=== PATIENT | male | born 1965 | race African-American/Black ===

== ENCOUNTER 2018-10-23 12:54 | Inpatient (IN) | payer OTHER ==
[2018-11-11] MEDS ORDERED: OXYCODONE HCL SR 10 MG TABLET PO PRN (05:00)
[2018-11-11] MEDS ORDERED: LACTATED RINGERS 1000 ML IV PRN (05:00)
[2018-11-11] MEDS ORDERED: IBUPROFEN 800 MG in NORMAL SALINE 250 ML IV PRN (05:00)
[2018-11-11] MEDS ORDERED: PANTOPRAZOLE SODIUM 20 MG TABLET.DR PO PRN (05:00)
[2018-11-11] MEDS ORDERED: LIDOCAINE 0.5% INJ-PF (5 MG/ML) 50 ML SDV SUBCUT PRN (05:00)
[2018-11-11] MEDS ORDERED: BUPIVACAINE INJ/PF LIPOSOME/PF 266 MG/20 ML SDV INJ PRN (05:00)
[2018-11-11] MEDS ORDERED: CEFAZOLIN INJ 1 GM VIAL IV PRN (05:00)
[2018-11-11] MEDS ORDERED: VANCOMYCIN HCL 1,000 MG in DEXTROSE 5%-WATER 250 ML IV PRN (05:00)
[2018-11-11] MEDS ORDERED: CEFAZOLIN 1 GM/D5W RTU 1 GM/50 ML RTUPB IV ONE (05:53)
[2018-11-11] MEDS ORDERED: PANTOPRAZOLE SODIUM 20 MG TABLET.DR PO ONE (05:57)
[2018-11-11] MEDS ORDERED: ONDANSETRON HCL INJ/PF 4 MG/2 ML SDV ONE (06:27)
[2018-11-11] MEDS ORDERED: MIDAZOLAM 2 MG/2 ML INJ ONE (06:27)
[2018-11-11] MEDS ORDERED: FENTANYL CITRATE INJ/PF 100 MCG/2 ML AMPUL ONE (06:27)
[2018-11-11] MEDS ORDERED: DEXAMETHASONE SOD PHOSPHATE INJ 4 MG/1 ML VIAL ONE (06:27)
[2018-11-11] MEDS ORDERED: PROPOFOL INJ 200 MG/20 ML VIAL IV ONE (06:28)
[2018-11-11] MEDS ORDERED: LIDOCAINE 0.5% INJ-PF (5 MG/ML) 50 ML SDV ONE (06:32)
[2018-11-11] MEDS ORDERED: TRANEXAMIC ACID INJ/PF 1,000 MG/10 ML SDV ONE ×2 (07:01→09:53)
[2018-11-11] MEDS ORDERED: BUPIVACAINE HCL 0.5 % INJ/PF 30 ML SDV ONE (07:04)
[2018-11-11] MEDS ORDERED: BUPIVACAINE HCL 0.5%-EPI 1:200000 INJ/PF 30 ML VIAL ONE (07:43)
[2018-11-11] MEDS ORDERED: FENTANYL CITRATE INJ/PF 100 MCG/2 ML AMPUL IV PRN ×3 (07:59)
[2018-11-11] MEDS ORDERED: ONDANSETRON HCL INJ/PF 4 MG/2 ML SDV IV PRN ×2 (07:59→08:30)
[2018-11-11] MEDS ORDERED: MEPERIDINE HCL/PF INJ 25 MG/1 ML DISP.SYRIN IV PRN (07:59)
[2018-11-11] MEDS ORDERED: PROMETHAZINE HCL INJ 25 MG/1 ML VIAL IV PRN ×2 (07:59)
[2018-11-11] MEDS ORDERED: MORPHINE SULFATE 10 MG/ML INJ IV PRN (07:59)
[2018-11-11] MEDS ORDERED: DIPHENHYDRAMINE HCL 50 MG/ML VIAL IV PRN ×2 (07:59→08:30)
[2018-11-11] MEDS ORDERED: MAG HYDROX/AL HYDROX/SIMETH SUSP 30 ML UDCUP PO PRN (08:30)
[2018-11-11] MEDS ORDERED: OXYCODONE HCL IR 5 MG TABLET PO PRN (08:30)
[2018-11-11] MEDS ORDERED: RINGERS SOLUTION,LACTATED 1,000 ML IV PRN (08:30)
[2018-11-11] MEDS ORDERED: ONDANSETRON 4 MG TAB.RAPDIS PO PRN (08:30)
[2018-11-11] MEDS ORDERED: ACETAMINOPHEN 325 MG TABLET PO PRN (08:30)
[2018-11-11] MEDS ORDERED: ZOLPIDEM TARTRATE 5 MG TABLET PO PRN (08:30)
--- NOTE | 2018-11-11 08:36 | Operative Report ---
Operative Report DATE OF SURGERY: 11/11/18 PREOPERATIVE DIAGNOSIS: Left knee arthritis OPERATION: Left knee arthroplasty SURGEON: PAUL YU ANESTHESIA: GA TISSUE REMOVED OR ALTERED: Bone to pathology ESTIMATED BLOOD LOSS: 50 PROCEDURE: Implants used: Femur: [place] triathlon size 6 CR uncemented femur Tibia: 6 uncemented tibia Tibial liner: 9 mm CS insert Patella: 38 mm uncemented patella Note on implant sizing. The patient had an exaggerated wide compared to anterior posterior dimension to both the femur the tibia. Femoral sizing was a 6 on the basis of anterior posterior dimensions and this left a fair amount of medial lateral condyle uncovered. Likewise when fitting the tibia while a 7 what if it medial to lateral it was too big and anterior posterior dimension hence a size 6 was opted for. Procedure with the patient supine on the operating table the left the limb is prepped and draped in a sterile fashion. The limb was elevated for exsanguinati on and the tourniquet inflated to 280 torr. A standard midline median parapatellar approach the knee is taken. Access is gained to the femoral canal through the intercondylar notch. Intramedullary alignment instrumentation used to resect 10 mm of distal femur in 5 of valgus. Sizing guide indicated a size 6 femur. Appropriate cutting jig is then used to fashion anterior posterior and chamfer cuts. A trial reduction femurs performed and this is judged to be adequate. Attention was next turned to the tibia. Using an extra medullary alignment system 9 millimeters was resected off the lateral tibial plateau. This is sized to a size 6 tibia. A trial reduction was now performed with a 6 femur and a 6 tibia using a 9 millimeters spacer. It is full extension and central patellofemoral tracking. The articular surface the patella was next resected using an oscillating saw. All trial implants were removed. Above implants are impacted into position. the tourniquet was deflated hemostasis obtained the wound is then closed in layers using interrupted Vicryl followed by torie. A sterile compressive dressing was applied and the patient returned to recovery room in satisfactory c ondition.
[2018-11-11] MEDS: FENTANYL CITRATE INJ/PF 100 MCG/2 ML AMPUL ONE ×2 (09:05→09:20)
--- NOTE | 2018-11-11 09:54 | RADIOLOGY REPORT (SQ) ---
EXAM DESCRIPTION: KNEE LEFT 2 VIEWS COMPLETED DATE/TIME: 11/11/2018 9:25 am REASON FOR STUDY: Post OP -Long Cassette in PACU M17.12 UNILATERAL PRIMARY OSTEOARTHRITIS, LEFT KNE E M17.0 BILATERAL PRIMARY OSTEOARTHRITIS OF KNEE COMPARISON: None. NUMBER OF VIEWS: Two views. TECHNIQUE: AP and lateral radiographic images acquired of the left knee. LIMITATIONS: None. FINDINGS: Postoperative findings of left knee total arthroplasty with expected overlying postoperati ve changes. No evidence of perihardware fracture or component malpositioning. IMPRESSION: Postoperative findings of left knee total arthroplasty with expected overlying postopera tive changes. No evidence of perihardware fracture or component malpositioning. TECHNICAL DOCUMENTATION: JOB ID: [id number] [email or web address]- All Rights Reserved Reading location - IP/workstation name: [email or web address]
[2018-11-11] MEDS ORDERED: TRANEXAMIC ACID INJ/PF 1,000 MG/10 ML SDV IV ONE (10:00)
[2018-11-11] MEDS ORDERED: ASPIRIN 81 MG TABLET, CHEWABLE PO SCH (10:00)
[2018-11-11] MEDS: OXYCODONE HCL SR 10 MG TABLET PO SCH ×2 (10:23→22:25)
[2018-11-11] MEDS: ASPIRIN 81 MG TABLET, ENT COATED PO SCH (10:24)
[2018-11-11] MEDS: IBUPROFEN 800 MG in NORMAL SALINE 250 ML IV SCH ×2 (14:39→22:23)
[2018-11-11] MEDS ORDERED: SUCCINYLCHOLINE CHLORIDE INJ 200 MG/10 ML VIAL ONE (15:43)
[2018-11-11] MEDS: SENNOSIDES/DOCUSATE 8.6-50 MG 1 EACH TABLET PO SCH (17:04)
[2018-11-11] MEDS ORDERED: VANCOMYCIN HCL 1,000 MG in DEXTROSE 5%-WATER 250 ML IV ONE (20:30)
[2018-11-12] MEDS: IBUPROFEN 800 MG in NORMAL SALINE 250 ML IV SCH ×2 (05:42→13:33)
[2018-11-12] MEDS ORDERED: PANTOPRAZOLE SODIUM 40 MG TABLET.DR PO SCH ×2 (06:00)
[2018-11-12 06:16] LABS: HEMATOCRIT 33.2 % (37.9-51.0); HEMOGLOBIN 11.1 g/dL (13.5-17.0); MEAN CORPUSCULAR HEMOGLOBIN 26.5 pg (27.0-33.4); MEAN CORPUSCULAR HGB CONC 33.3 g/dL (32.0-36.0); MEAN CORPUSCULAR VOLUME 79 fl (80-97); PLATELET COUNT 208 10^3/uL (150-450); RED BLOOD COUNT 4.18 10^6/uL (4.35-5.55); RED CELL DISTRIBUTION WIDTH 14.7 % (11.5-14.0); WHITE BLOOD COUNT 7.7 10^3/uL (4.0-10.5)
[2018-11-12 06:36] LABS: ANION GAP 6 (5-19); BLOOD UREA NITROGEN 13 mg/dL (7-20); CALCIUM 8.7 mg/dL (8.4-10.2); CARBON DIOXIDE 28 mmol/L (22-30); CHLORIDE 102 mmol/L (98-107); GLUCOSE 97 mg/dL (75-110); POTASSIUM 4.3 mmol/L (3.6-5.0)
--- NOTE | 2018-11-12 07:14 | PDOC DISCHARGE SUMMARY ---
Impression - Admit/DC Date/PCP Admission Date/Primary Care Provider: 11/11/18 05:35 VARGAS CASTRO Discharge Date: 11/12/18 - Additional Information Resuscitation Status: Full Code Discharge Diet: Regular Discharge Activity: Balance Activity w/Rest, No tub bath Referrals: PAUL YU MD [ACTIVE STAFF] - 11/26/18 10:15 am Home Medications: Meloxicam [Mobic 15 mg Tablet] 15 mg PO ASDIR PRN 06/03/12 History of Present Illiness History of Present Illness: ROSITA ANN is a 53 year old male Patient is a 53-year-old black male with progressive left knee pain and functional disability second osteoarthritis. Patient is admitted for elective left knee arthroplasty. Hospital Course Hospital Course: Patient's admitted through the operating room where he undergoes an unconjugated left knee arthroplasty. He is returned to floor in satisfactory condition. He makes excellent progress with physical therapy ambulating on the day of surgery. He does so without any narcotic medication and his discretion. Compression dressing is removed on the first postoperative morning. Underlying OpSite dressings clean dry and intact with minimal pedal edema. Physical Exam Vital Signs: Temp Pulse Resp BP Pulse Ox 36.9 C 96 18 146/80 H 97 11/11/18 20:45 11/11/18 20:45 11/11/18 20:45 11/11/18 20:45 11/11/18 20:45 Intake & Output 11/11/18 11/12/18 11/13/18 06:59 06:59 06:59 Intake Total 2590 Output Total 75 Balance 2515 Weight 90.72 kg 100.6 kg General appearance: PRESENT: no acute distress Head exam: PRESENT: normocephalic Respiratory exam: PRESENT: unlabored Cardiovascular exam: PRESENT: RRR Pulses: PRESENT: +1 pedal pulses bilateral Vascular exam: PRESENT: normal capillary refill GI/Abdominal exam: PRESENT: soft Rectal exam: PRESENT: deferred Musculoskeletal exam: PRESENT: other - Left lower extremity OpSite dressing clean dry and intact. Distal neurovascular examination is intact. Neurological exam: PRESENT: alert, awake, oriented to person, oriented to place, oriented to time, oriented to situation, CN II-XII grossly intact. ABSENT: motor sensory deficit Psychiatric exam: PRESENT: appropriate affect, normal mood. ABSENT: homicidal ideation, suicidal ideation Skin exam: PRESENT: dry, intact, warm. ABSENT: cyanosis, rash Results Laboratory Results: WBC 7.7 10^3/uL (4.0-10.5) 11/12/18 05:08 RBC 4.18 10^6/uL (4.35-5.55) L 11/12/18 05:08 Hgb 11.1 g/dL (13.5-17.0) L 11/12/18 05:08 Hct 33.2 % (37.9-51.0) L 11/12/18 05:08 MCV 79 fl (80-97) L 11/12/18 05:08 MCH 26.5 pg (27.0-33.4) L 11/12/18 05:08 MCHC 33.3 g/dL (32.0-36.0) 11/12/18 05:08 RDW 14.7 % (11.5-14.0) H 11/12/18 05:08 Plt Count 208 10^3/uL (150-450) 11/12/18 05:08 Sodium 136.0 mmol/L (137-145) L 11/12/18 05:08 Potassium 4.3 mmol/L (3.6-5.0) 11/12/18 05:08 Chloride 102 mmol/L (98-107) 11/12/18 05:08 Carbon Dioxide 28 mmol/L (22-30) 11/12/18 05:08 Anion Gap 6 (5-19) 11/12/18 05:08 BUN 13 mg/dL (7-20) 11/12/18 05:08 Creatinine 1.01 mg/dL (0.52-1.25) 11/12/18 05:08 Est GFR ( Amer) > 60 (>60) 11/12/18 05:08 Est GFR (MDRD) Non-Af > 60 (>60) 11/12/18 05:08 Glucose 97 mg/dL (75-110) 11/12/18 05:08 Calcium 8.7 mg/dL (8.4-10.2) 11/12/18 05:08 Impressions: Knee X-Ray 11/11/18 08:32 IMPRESSION: Postoperative findings of left knee total arthroplasty with expected overlying postoperative changes. No evidence of perihardware fracture or component malpositioning. Plan Plan of Treatment: Patient be discharged home with home health services and DME. Follow-up with Dr. Yu and [facility] for surgery in 2 weeks for staple removal. Stroke Is this a Stroke Patient?: No Stroke Pt being discharged on Anti-thrombolytic therapy?: Yes Acute Heart Failure - Is this a Heart Failure Patient?: No
[2018-11-12] MEDS ORDERED: PRENATAL VITAMIN W DHA CAPSULE PO SCH (10:00)
[2018-11-12] MEDS: SENNOSIDES/DOCUSATE 8.6-50 MG 1 EACH TABLET PO SCH (12:00)
[2018-11-12] MEDS: OXYCODONE HCL SR 10 MG TABLET PO SCH (12:09)
[2018-11-12] MEDS: ASPIRIN 81 MG TABLET, ENT COATED PO SCH (12:11)
[2018-11-12] MEDS ORDERED: INFLUENZA QUAD (6MOS+) 2019-20 VAC 0.5 ML SYR IM ONE (16:00)
[2018-11-12 16:01] VITALS: BP 130/82
[2018-11-13] MEDS ORDERED: INFLUENZA QUAD (6MOS+) 2019-20 VAC 0.5 ML SYR IM ONE (08:00)
== END 2018-11-12 17:00 | disposition home health service (06) | DRG 470 ==
LOC: INOR 11-11 05:35 → 4S 11-11 10:08
PROVIDERS: ADMIT Orthopaedic Surgery; ATTEND Orthopaedic Surgery
PROC: 0SRD0JA Replacement of Left Knee Joint with Synthetic Substitute, Uncemented, Open Approach (ICD-10-PCS; principal; 2018-11-11 07:30)
PROC: 3E0234Z Introduction of Serum, Toxoid and Vaccine into Muscle, Percutaneous Approach (ICD-10-PCS; 2018-11-12)
DX: M17.12 Unilateral primary osteoarthritis, left knee (principal); Z23 Encounter for immunization
CPT/HCPCS: 01402; 36415; 80048; 85027; 88305; 88311; 88312; 90686; 94799; C1776; J0330; J0690; J1100; J1741; J2250; J2405; J2704; J3010; J3370; J3490; J7050; J7060

== ENCOUNTER → 2018-10-28 | Outpatient (CLI) | payer OTHER ==
[2018-10-28 14:17] LABS: ABSOLUTE LYMPHOCYTES (AUTO) 1.6 10^3/uL (0.5-4.7); ABSOLUTE MONOCYTES (AUTO) 0.4 10^3/uL (0.1-1.4); ABSOLUTE NEUT (AUTO) 1.8 10^3/uL (1.7-8.2); BASOPHILS % (AUTO) 0.2 % (0-2); HEMATOCRIT 38.2 % (37.9-51.0); HEMOGLOBIN 12.5 g/dL (13.5-17.0); LYMPHOCYTES % (AUTO) 41.2 % (13-45); MEAN CORPUSCULAR HEMOGLOBIN 26.1 pg (27.0-33.4); MEAN CORPUSCULAR HGB CONC 32.8 g/dL (32.0-36.0); MEAN CORPUSCULAR VOLUME 79 fl (80-97); MONOCYTES % (AUTO) 10.4 % (3-13); PLATELET COUNT 222 10^3/uL (150-450); RED BLOOD COUNT 4.81 10^6/uL (4.35-5.55); RED CELL DISTRIBUTION WIDTH 14.7 % (11.5-14.0); SEGMENTED NEUTROPHILS % (AUTO) 47.2 % (42-78); TOTAL CELLS COUNTED % (AUTO) 100 %; WHITE BLOOD COUNT 3.9 10^3/uL (4.0-10.5)
[2018-10-28 14:24] LABS: APPEARANCE,URINE CLEAR; BILIRUBIN,URINE NEGATIVE (NEGATIVE); COLOR,URINE COLORLESS; GLUCOSE, URINE NEGATIVE (NEGATIVE); KETONES,URINE NEGATIVE (NEGATIVE); URINE SPECIFIC GRAVITY 1.021
[2018-10-28 14:25] LABS: LEUKOCYTE ESTERASE,URINE NEGATIVE (NEGATIVE); NITRITE,URINE NEGATIVE (NEGATIVE); PROTEIN,URINE NEGATIVE (NEGATIVE); UROBILINOGEN,URINE NEGATIVE mg/dL (<2.0)
[2018-10-28 14:31] LABS: ANION GAP 10 (5-19); BLOOD UREA NITROGEN 16 mg/dL (7-20); CALCIUM 9.7 mg/dL (8.4-10.2); CARBON DIOXIDE 30 mmol/L (22-30); CHLORIDE 100 mmol/L (98-107); GLUCOSE 89 mg/dL (75-110); POTASSIUM 4.5 mmol/L (3.6-5.0)
--- NOTE | 2018-10-28 14:52 | RADIOLOGY REPORT (SQ) ---
EXAM DESCRIPTION: CHEST PA/LATERAL COMPLETED DATE/TIME: 10/28/2018 1:52 pm REASON FOR STUDY: PRE-OP COMPARISON: 06/03/2012 EXAM PARAMETERS: NUMBER OF VIEWS: two views TECHNIQUE: Digital Frontal and Lateral radiographic views of the chest acquired. RADIATION DOSE: NA LIMITATIONS: none FINDINGS: LUNGS AND PLEURA: No opacities, masses or pneumothorax. No pleural effusion. MEDIASTINUM AND HILAR STRUCTURES: No masses or contour abnormalities. HEART AND VASCULAR STRUCTURES: Heart normal size. No evidence for failure. BONES: No acute findings. HARDWARE: None in the chest. OTHER: No other significant finding. IMPRESSION: NO SIGNIFICANT RADIOGRAPHIC FINDING IN THE CHEST. TECHNICAL DOCUMENTATION: JOB ID: [id number] [employer]- All Rights Reserved Reading location - IP/workstation name: [email or web address]
--- NOTE | 2018-10-28 18:16 | EKG REPORT ---
SEVERITY:- ABNORMAL ECG - SINUS RHYTHM NONSPECIFIC T ABNORMALITIES, INFERIOR LEADS CONSIDER OLD ANTEROSEPTAL FL : Confirmed by: Everton Wakefield MD 28-Oct-2018 18:15:46
== END ==
LOC: OD 13:24
PROVIDERS: ATTEND Orthopaedic Surgery
DX: Z01.812 Encounter for preprocedural laboratory examination (principal); Z01.810 Encounter for preprocedural cardiovascular examination; Z01.811 Encounter for preprocedural respiratory examination; M17.12 Unilateral primary osteoarthritis, left knee
CPT/HCPCS: 36415; 71046; 80048; 81001; 85025; 93005; 93010

== ENCOUNTER → 2019-10-09 | Outpatient (CLI) | payer OTHER ==
[2019-10-09 11:29] LABS: ABSOLUTE LYMPHOCYTES (AUTO) 0.9 10^3/uL (0.5-4.7); ABSOLUTE MONOCYTES (AUTO) 0.4 10^3/uL (0.1-1.4); ABSOLUTE NEUT (AUTO) 4.7 10^3/uL (1.7-8.2); BASOPHILS % (AUTO) 0.1 % (0-2); EOSINOPHILS % (AUTO) 0.1 % (0-6); HEMATOCRIT 41.8 % (37.9-51.0); HEMOGLOBIN 13.8 g/dL (13.5-17.0); LYMPHOCYTES % (AUTO) 15.4 % (13-45); MEAN CORPUSCULAR HEMOGLOBIN 26.4 pg (27.0-33.4); MEAN CORPUSCULAR VOLUME 80 fl (80-97); MONOCYTES % (AUTO) 5.9 % (3-13); PLATELET COUNT 235 10^3/uL (150-450); RED BLOOD COUNT 5.24 10^6/uL (4.35-5.55); RED CELL DISTRIBUTION WIDTH 14.7 % (11.5-14.0); SEGMENTED NEUTROPHILS % (AUTO) 78.5 % (42-78); TOTAL CELLS COUNTED % (AUTO) 100 %
[2019-10-09 11:39] LABS: APPEARANCE,URINE CLEAR; BILIRUBIN,URINE NEGATIVE (NEGATIVE); COLOR,URINE YELLOW; GLUCOSE, URINE NEGATIVE (NEGATIVE); KETONES,URINE NEGATIVE (NEGATIVE); LEUKOCYTE ESTERASE,URINE NEGATIVE (NEGATIVE); NITRITE,URINE NEGATIVE (NEGATIVE); PROTEIN,URINE NEGATIVE (NEGATIVE); URINE SPECIFIC GRAVITY 1.012; UROBILINOGEN,URINE NEGATIVE mg/dL (<2.0)
--- NOTE | 2019-10-09 11:42 | RADIOLOGY REPORT (SQ) ---
EXAM DESCRIPTION: CHEST PA/LATERAL IMAGES COMPLETED DATE/TIME: 10/09/2019 10:55 am REASON FOR STUDY: PRE-OP COMPARISON: 10/28/2018 EXAM PARAMETERS: NUMBER OF VIEWS: two views TECHNIQUE: Digital Frontal and Lateral radiographic views of the chest acquired. RADIATION DOSE: NA LIMITATIONS: none FINDINGS: LUNGS AND PLEURA: No opacities, masses or pneumothorax. No pleural effusion. MEDIASTINUM AND HILAR STRUCTURES: No masses or contour abnormalities. HEART AND VASCULAR STRUCTURES: Heart normal size. No evidence for failure. BONES: No acute findings. HARDWARE: None in the chest. OTHER: No other significant finding. IMPRESSION: NO SIGNIFICANT RADIOGRAPHIC FINDING IN THE CHEST. TECHNICAL DOCUMENTATION: JOB ID: [id number] 2010 [employer]- All Rights Reserved Reading location - IP/workstation name: [email or web address]
[2019-10-09 11:52] LABS: ADD MANUAL MICROSCOPIC YES
[2019-10-09 12:07] LABS: ANION GAP 10 (5-19); BLOOD UREA NITROGEN 20 mg/dL (7-20); CALCIUM 9.7 mg/dL (8.4-10.2); CARBON DIOXIDE 30 mmol/L (22-30); CHLORIDE 101 mmol/L (98-107); GLUCOSE 106 mg/dL (75-110); POTASSIUM 4.7 mmol/L (3.6-5.0)
--- NOTE | 2019-10-10 11:18 | EKG REPORT ---
SEVERITY:- BORDERLINE ECG - SINUS ARRHYTHMIA, RATE 49-74 CONSIDER RVH OR POSTERIOR INFARCT BORDERLINE T ABNORMALITIES, INFERIOR LEADS : Confirmed by: Ariane Cruz MD 10-Oct-2019 11:17:27
== END ==
LOC: OD 10:14
PROVIDERS: ATTEND Orthopaedic Surgery
DX: Z01.810 Encounter for preprocedural cardiovascular examination (principal); Z01.811 Encounter for preprocedural respiratory examination; Z01.812 Encounter for preprocedural laboratory examination; M17.11 Unilateral primary osteoarthritis, right knee
CPT/HCPCS: 36415; 71046; 80048; 81001; 85025; 93005; 93010

== ENCOUNTER 2019-11-03 05:32 | Day surgery (SDC) | payer OTHER ==
[~2019-11-03 05:32] MED LIST: BUPIVACAINE INJ/PF LIPOSOME/PF 266 MG/20 ML SDV INJ PRN; CEFAZOLIN INJ 1 GM VIAL IV PRN; IBUPROFEN 800 MG in NORMAL SALINE 250 ML IV PRN; LACTATED RINGERS 1000 ML IV PRN; LIDOCAINE 0.5% INJ-PF (5 MG/ML) 50 ML SDV SUBCUT PRN; OXYCODONE HCL SR 10 MG TABLET PO PRN; PANTOPRAZOLE SODIUM 20 MG TABLET.DR PO PRN; VANCOMYCIN HCL 1,000 MG in DEXTROSE 5%-WATER 250 ML IV PRN
[2019-11-03] MEDS ORDERED: OXYCODONE HCL SR 10 MG TABLET PO ONE (05:54)
[2019-11-03] MEDS ORDERED: PANTOPRAZOLE SODIUM 20 MG TABLET.DR PO ONE (05:54)
[2019-11-03] MEDS ORDERED: CEFAZOLIN 1 GM/D5W RTU 1 GM/50 ML RTUPB IV ONE (06:38)
[2019-11-03] MEDS ORDERED: KETAMINE HCL INJ 500 MG/10 ML VIAL ONE (06:51)
[2019-11-03] MEDS ORDERED: FENTANYL CITRATE INJ/PF 100 MCG/2 ML AMPUL ONE (06:52)
[2019-11-03] MEDS ORDERED: MIDAZOLAM 2 MG/2 ML INJ ONE (06:52)
[2019-11-03] MEDS ORDERED: PROPOFOL INJ 200 MG/20 ML VIAL IV ONE ×2 (06:52→15:00)
[2019-11-03] MEDS ORDERED: BUPIVACAINE HCL 0.25% /EPINEPHRINE INJ/PF 30 ML SDV ONE (07:08)
[2019-11-03] MEDS ORDERED: TRANEXAMIC ACID INJ/PF 1,000 MG/10 ML SDV ONE (07:51)
[2019-11-03] MEDS ORDERED: MEPERIDINE HCL/PF INJ 25 MG/1 ML DISP.SYRIN IV PRN (08:36)
[2019-11-03] MEDS ORDERED: PROMETHAZINE HCL INJ 25 MG/1 ML VIAL IV PRN ×2 (08:36)
[2019-11-03] MEDS ORDERED: DIPHENHYDRAMINE HCL 50 MG/ML VIAL IV PRN ×2 (08:36→08:37)
[2019-11-03] MEDS ORDERED: TRANEXAMIC ACID INJ/PF 1,000 MG/10 ML SDV IV ONE (08:37)
[2019-11-03] MEDS ORDERED: ONDANSETRON HCL INJ/PF 4 MG/2 ML SDV IV PRN (08:37)
[2019-11-03] MEDS ORDERED: ZOLPIDEM TARTRATE 5 MG TABLET PO PRN ×2 (08:37→10:30)
[2019-11-03] MEDS ORDERED: MAG HYDROX/AL HYDROX/SIMETH SUSP 30 ML UDCUP PO PRN (08:37)
[2019-11-03] MEDS ORDERED: OXYCODONE HCL IR 5 MG TABLET PO PRN (08:37)
[2019-11-03] MEDS ORDERED: RINGERS SOLUTION,LACTATED 1,000 ML IV PRN (08:37)
[2019-11-03] MEDS ORDERED: ONDANSETRON 4 MG TAB.RAPDIS PO PRN (08:37)
--- NOTE | 2019-11-03 08:43 | Operative Report ---
Operative Report DATE OF SURGERY: 11/03/19 PREOPERATIVE DIAGNOSIS: Right knee arthritis OPERATION: Right knee arthroplasty SURGEON: PAUL YU ANESTHESIA: Spinal TISSUE REMOVED OR ALTERED: Bone to pathology COMPLICATIONS: Nondominant hand glove failure for the surgeon at the time of tibial preparation ESTIMATED BLOOD LOSS: 75 PROCEDURE: Implants used: Femur: [place] triathlon size 6 CR uncemented femur Tibia: 7 uncemented tibia Tibial liner: 9 mm CS insert Patella: 40 mm oval patella Procedure with the patient supine on the operating table the right the limb is prepped and draped in a sterile fashion. The limb was elevated for exsanguination and the tourniquet inflated to 280 torr. A standard midline median parapatellar approach the knee is taken. Access is gained to the femoral canal through the intercondylar notch. Intramedullary alignment instrumentation used to resect 10 mm of distal femur in 5 of valgus. Sizing guide indicated a size X femur. Appropriate cutting jig is then used to fashion anterior posterior and chamfer cuts. A trial reduction femurs performed and this is judged to be adequate. Attention was next turned to the tibia. Using an extra medullary alignment system 9 millimeters was resected off the lateral tibial plateau. The process of tibial preparation a double layer glove failure of the surgeon's nondominant hand is identified. Gloves are changed and the wound is sukhjinder here with pulse lavage. Preparation continues. This is sized to a size Joshua tibia. A trial reduction was now performed with a 6 femur and a 7 tibia using a 11 millimeters spacer. It is full extension and central patellofemoral tracking. The articular surface the patella was next resected using an oscillating saw. All trial implants were removed. The above implants are impacted into position. The tourniquet was deflated hemostasis obtained the wound is then closed in layers using interrupted Vicryl followed by torie. A sterile compressive dressing was applied and the patient returned to recovery room in satisfactory condition.
[2019-11-03] MEDS ORDERED: ROPIVACAINE HCL 0.2% INJ/PF (2 MG/ML) 20 ML SDV ONE (08:47)
[2019-11-03] MEDS ORDERED: OXYCODONE HCL SR 10 MG TABLET PO SCH (10:00)
[2019-11-03] MEDS ORDERED: ASPIRIN 81 MG TABLET, ENT COATED PO SCH (10:00)
[2019-11-03] MEDS ORDERED: PRENATAL VITAMIN W DHA CAPSULE PO SCH (10:00)
--- NOTE | 2019-11-03 10:14 | RADIOLOGY REPORT (SQ) ---
EXAM DESCRIPTION: KNEE RIGHT 2 VIEWS IMAGES COMPLETED DATE/TIME: 11/03/2019 10:00 am REASON FOR STUDY: Post OP -Long Cassette in PACU M17.11 UNILATERAL PRIMARY OSTEOARTHRITIS, RIGHT KN EE COMPARISON: None. NUMBER OF VIEWS: Two view(s). TECHNIQUE: Digital radiographic images of the right knee post-procedure. LIMITATIONS: None. FINDINGS: BONES: No worrisome or unexpected findings post-procedure. DEVICE: Total knee arthroplasty SOFT TISSUES: No worrisome findings. Expected postoperative soft tissue changes. IMPRESSION: SATISFACTORY POSTOPERATIVE RIGHT KNEE. TECHNICAL DOCUMENTATION: JOB ID: [id number] 2010 [employer]- All Rights Reserved Reading location - IP/workstation name: [email or web address]
[2019-11-03] MEDS: ACETAMINOPHEN 325 MG TABLET PO PRN ×3 (12:42→23:27)
[2019-11-03] MEDS: SENNOSIDES/DOCUSATE 8.6-50 MG 1 EACH TABLET PO SCH ×2 (12:43→19:06)
[2019-11-03] MEDS: IBUPROFEN 800 MG in NORMAL SALINE 250 ML IV SCH ×2 (14:00→22:33)
[2019-11-03] MEDS ORDERED: VANCOMYCIN HCL 1,000 MG in DEXTROSE 5%-WATER 250 ML IV ONE (20:37)
[2019-11-03] MEDS: OXYCODONE HCL SR 10 MG TABLET PO SCH (21:06)
[2019-11-03] MEDS: MELOXICAM 15 MG TABLET PO SCH (22:35)
[2019-11-04] MEDS: OXYCODONE HCL SR 10 MG TABLET PO SCH (05:21)
[2019-11-04 05:23] LABS: HEMATOCRIT 31.2 % (37.9-51.0); HEMOGLOBIN 10.6 g/dL (13.5-17.0); MEAN CORPUSCULAR VOLUME 80 fl (80-97); PLATELET COUNT 173 10^3/uL (150-450); RED BLOOD COUNT 3.92 10^6/uL (4.35-5.55); RED CELL DISTRIBUTION WIDTH 14.8 % (11.5-14.0)
[2019-11-04] MEDS: ACETAMINOPHEN 325 MG TABLET PO PRN (05:28)
[2019-11-04] MEDS: IBUPROFEN 800 MG in NORMAL SALINE 250 ML IV SCH (05:28)
[2019-11-04 05:36] LABS: ANION GAP 6 (5-19); BLOOD UREA NITROGEN 18 mg/dL (7-20); CALCIUM 8.5 mg/dL (8.4-10.2); CARBON DIOXIDE 27 mmol/L (22-30); CHLORIDE 105 mmol/L (98-107); GLUCOSE 116 mg/dL (75-110); POTASSIUM 3.9 mmol/L (3.6-5.0)
[2019-11-04] MEDS ORDERED: PANTOPRAZOLE SODIUM 40 MG TABLET.DR PO SCH (06:00)
--- NOTE | 2019-11-04 07:24 | PDOC DISCHARGE SUMMARY ---
Impression - Admit/DC Date/PCP Admission Date/Primary Care Provider: LACIE CERDA Discharge Date: 11/04/19 - Discharge Diagnosis (1) Arthritis of right knee Is this a current diagnosis for this admission?: Yes - Additional Information Resuscitation Status: Full Code Discharge Diet: Regular Discharge Activity: Balance Activity w/Rest, No Driving, No tub bath Referrals: PAUL YU MD [ACTIVE STAFF] - 11/18/19 8:15 am Home Medications: No Home Medications 10/29/19 History of Present Illiness History of Present Illness: ROSITA ANN is a 54 year old male Patient is a 54-year-old black male with progressive left knee pain and function disability second osteoarthritis. Patient is admitted for elective left knee arthroplasty. Hospital Course Hospital Course: Patient is admitted through the operating where he undergoes uncomplicated right knee arthroplasty. Is returned to the floor in satisfactory condition. Physical Exam Vital Signs: Temp Pulse Resp BP Pulse Ox 37.3 C 86 17 111/61 98 11/03/19 23:29 11/03/19 23:29 11/03/19 23:29 11/03/19 23:29 11/03/19 23:29 Intake & Output 11/03/19 11/04/19 11/05/19 06:59 06:59 06:59 Intake Total 0 6219 Output Total 320 Balance 0 5899 Weight 91 kg 91 kg General appearance: PRESENT: no acute distress Head exam: PRESENT: normocephalic Respiratory exam: PRESENT: unlabored Cardiovascular exam: PRESENT: RRR Vascular exam: PRESENT: normal capillary refill Results Laboratory Results: WBC 5.0 10^3/uL (4.0-10.5) 11/04/19 05:02 RBC 3.92 10^6/uL (4.35-5.55) L 11/04/19 05:02 Hgb 10.6 g/dL (13.5-17.0) L 11/04/19 05:02 Hct 31.2 % (37.9-51.0) L 11/04/19 05:02 MCV 80 fl (80-97) 11/04/19 05:02 MCH 27.0 pg (27.0-33.4) 11/04/19 05:02 MCHC 34.0 g/dL (32.0-36.0) 11/04/19 05:02 RDW 14.8 % (11.5-14.0) H 11/04/19 05:02 Plt Count 173 10^3/uL (150-450) 11/04/19 05:02 Sodium 137.5 mmol/L (137-145) 11/04/19 05:02 Potassium 3.9 mmol/L (3.6-5.0) 11/04/19 05:02 Chloride 105 mmol/L (98-107) 11/04/19 05:02 Carbon Dioxide 27 mmol/L (22-30) 11/04/19 05:02 Anion Gap 6 (5-19) 11/04/19 05:02 BUN 18 mg/dL (7-20) 11/04/19 05:02 Creatinine 1.03 mg/dL (0.52-1.25) 11/04/19 05:02 Est GFR ( Amer) > 60 (>60) 11/04/19 05:02 Est GFR (MDRD) Non-Af > 60 (>60) 11/04/19 05:02 Glucose 116 mg/dL (75-110) H 11/04/19 05:02 Calcium 8.5 mg/dL (8.4-10.2) 11/04/19 05:02 COVID-19 Source NASOPHARYNGEAL 10/29/19 09:10 COVID-19 (NAYA) Not Detected (Not Detect) 10/29/19 09:10 Impressions: Knee X-Ray 11/03/19 08:39 IMPRESSION: SATISFACTORY POSTOPERATIVE RIGHT KNEE. Plan Plan of Treatment: Patient to be discharged home with home health services and DME. Follow-up with Dr. Yu and [facility] for surgery in 2 weeks for staple removal. Time Spent: Less than 30 Minutes Stroke Is this a Stroke Patient?: No Stroke Pt being discharged on Anti-thrombolytic therapy?: Yes Acute Heart Failure Is this a Heart Failure Patient?: No
[2019-11-04] MEDS: SENNOSIDES/DOCUSATE 8.6-50 MG 1 EACH TABLET PO SCH (09:14)
[2019-11-04] MEDS: MELOXICAM 15 MG TABLET PO SCH (09:15)
[2019-11-04] MEDS ORDERED: KETOROLAC TROMETHAMINE INJ/PF 30 MG/1 ML SDV IV ONE (09:30)
[2019-11-04] MEDS ORDERED: PRENATAL VITAMIN W DHA CAPSULE PO SCH (10:00)
[2019-11-04] MEDS ORDERED: ASPIRIN 81 MG TABLET, ENT COATED PO SCH (10:00)
[2019-11-04] MEDS ORDERED: KETOROLAC TROMETHAMINE INJ/PF 30 MG/1 ML SDV ONE (11:43)
[2019-11-04 12:07] VITALS: BP 126/68
== END 2019-11-04 13:35 | disposition home health service (06) ==
LOC: OROUT 05:32 → 4S 10:09 → EDSTATUS 13:30 → OROUT 11-04 13:35
PROVIDERS: ATTEND Orthopaedic Surgery
DX: M17.11 Unilateral primary osteoarthritis, right knee (principal); Z03.818 Encounter for observation for suspected exposure to other biological agents ruled out; Z96.652 Presence of left artificial knee joint; Z79.1 Long term (current) use of non-steroidal anti-inflammatories (NSAID)
CPT/HCPCS: 36415; 85027; 87635; 80048; 88305 ×2; 88311; 73560; 94799; 97530 ×2; 97110 ×2; 97116 ×2; 97162; 97165; 27447; C1776 ×4; J2250; J0690; J3010; J3490 ×6; J1885; J7060; J7050 ×2; J2704; J3370; J1741 ×2; J2795; C9803; 01402